=== PATIENT | female | born 1960 | race Hispanic/Latino ===

== ENCOUNTER 2018-04-26 10:24 | Day surgery (SDC) | payer BC ==
[2012-08-17 09:14] VITALS: BMI 39.4
[2018-04-26] MEDS ORDERED: Sodium Chloride 0.9% 1,000 ML IV SCH (11:30)
[2018-04-26] MEDS ORDERED: Propofol 10 mg/ml Inj (20 ML) ONE (12:47)
[2018-04-26 14:45] VITALS: BP 114/67; PULSE 70; RESP 16; TEMP 98; O2SAT 97
== END 2018-04-26 14:17 | disposition home or self-care (01) ==
LOC: ENDO 10:24
PROVIDERS: ATTEND Internal Medicine Gastroenterology
DX: K21.9 Gastro-esophageal reflux disease without esophagitis (principal); K25.9 Gastric ulcer, unspecified as acute or chronic, without hemorrhage or perforation; K29.50 Unspecified chronic gastritis without bleeding; K63.5 Polyp of colon; K64.8 Other hemorrhoids; K64.4 Residual hemorrhoidal skin tags
CPT/HCPCS: 43239; 45380; 88305; 88312; 88342; J2001; J2704; J7030; J7040

== ENCOUNTER 2018-08-02 08:13 | Outpatient (CLI) | payer BC | END 2018-08-02 08:14 | disposition home or self-care (01) | LOC: RAD 08:13 ==

== ENCOUNTER 2018-08-03 08:23 | Outpatient (CLI) | payer BC | END 2018-08-03 08:24 | disposition home or self-care (01) | LOC: RAD 08:23 | DX: M54.16 Radiculopathy, lumbar region (principal) ==